=== PATIENT | male | born 2000 | race Two or more races ===

== ENCOUNTER 2022-03-03 20:21 | Emergency (ER) | payer OTHER ==
[~2022-03-03] VITALS: Ht 182.9 cm; Wt 66.7 kg
[2022-03-04] MEDS ORDERED: OSEL75CA PO (07:01)
[2022-03-04] MEDS ORDERED: DOLOGESIC 500-1 EACH PO ×2 (07:02)
== END 2022-03-04 07:45 ==
LOC: ER 20:21 → EMR PED 21:27 → ER 21:27
DX: J11.1 Influenza due to unidentified influenza virus with other respiratory manifestations (principal); R07.9 Chest pain, unspecified; Z20.822 Contact with and (suspected) exposure to COVID-19

== ENCOUNTER 2022-05-19 18:36 | Emergency (ER) | payer OTHER ==
[~2022-05-19] VITALS: Ht 185.4 cm; Wt 68.0 kg
[~2022-05-19 18:36] MED LIST: DOLOGESIC 500-1 EACH PO; OSEL75CA PO
[2022-05-19] MEDS ORDERED: KETO10TA2 PO (20:11)
== END 2022-05-19 20:17 | disposition home or self-care (01) ==
LOC: ER 18:36 → EMR PED 18:39
DX: M54.59 Other low back pain (principal)

== ENCOUNTER 2024-05-18 17:16 | Emergency (ER) | payer OTHER ==
[~2024-05-18] VITALS: Ht 182.9 cm; Wt 65.8 kg
[~2024-05-18 17:16] MED LIST changes: +KETO10TA2 PO
[2024-05-18] MEDS ORDERED: DEXAMETHASONE SODIUM PHOSPHATE 4 MG/ML VIAL IM STA (20:09)
[2024-05-18] MEDS ORDERED: TETANUS IMMUNE GLOBULIN 250 U/SYR DISP.SYRIN IM STA (20:10)
[2024-05-18] MEDS ORDERED: ORPHENADRINE CITRATE 30 MG/ML AMPUL IM STA (20:11)
[2024-05-18] MEDS ORDERED: TETANUS & DIPHTHERIA TOX,ADULT 0.5 ML VIAL IM ONE (21:15)
== END 2024-05-18 21:31 | disposition home or self-care (01) ==
LOC: ER 17:18
DX: S93.499A Sprain of other ligament of unspecified ankle, initial encounter (principal); W19.XXXA Unspecified fall, initial encounter; Y93.02 Activity, running; Y92.89 Other specified places as the place of occurrence of the external cause; Y99.8 Other external cause status
CPT/HCPCS: 73600; 73630; 90471; 90714; J1670

== ENCOUNTER 2024-06-12 14:28 | Emergency (ER) | payer OTHER ==
[~2024-06-12] VITALS: Ht 182.9 cm; Wt 72.6 kg
[2024-06-12 15:41] VITALS: BP 107/71; O2SAT 100
[2024-06-12] MEDS ORDERED: DEXAMETHASONE SODIUM PHOSPHATE 4 MG/ML VIAL IM STA (16:08)
[2024-06-12] MEDS ORDERED: KETOROLAC TROMETHAMINE 30 MG VIAL IM STA (16:09)
[2024-06-12] MEDS ORDERED: AMOX1TAB5 PO (16:11)
== END 2024-06-12 17:21 | disposition home or self-care (01) ==
LOC: ER 14:30
DX: J02.9 Acute pharyngitis, unspecified (principal)